=== PATIENT | male | born 1980 | race Caucasian/White ===

== ENCOUNTER 2022-06-09 03:48 | Emergency (ER) | payer OTHER ==
[2022-06-09 04:09] VITALS: O2SAT 99
[2022-06-09] MEDS ORDERED: BABY ASPIRIN 81 MG CHEW PO ONE (04:23)
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
[2022-06-09 04:48] LABS: Absolute Neutrophil Ct (ANC) 8.78 x10^3/uL (1.4-6.9); BASOPHIL % 0.4 % (0.0-0.4); Basophil (Absolute #) 0.05 x10^3/uL (0-0.4); Eosinophil % 1.7 % (0.00-5.0); Hematocrit 44.6 % (42-50); Hemoglobin 14.5 g/dL (12.5-18.0); IMMATURE GRAN # 0.04 x10^3u/L (0.00-0.03); IMMATURE GRAN % 0.3 % (0.00-0.4); Lymphocyte (Absolute #) 2.18 x10^3/uL (1.0-4.6); Lymphocytes % 18.1 % (24.0-44.0); Mean Cell Volume 85.8 fL (78-100); Mean Corpuscular Hemoglobin 27.9 pg (26-32); Mean Corpuscular Hgb Concent. 32.5 g/dL (32-36); Mean Platelet Volume 10.6 fL (7.5-11.0); Monocyte (Absolute #) 0.78 x10^3/uL (0.0-1.3); Monocytes % 6.5 % (0.0-12.0); Platelet Count 245 x10^3/uL (150-450); Red Cell Distribution Width 12.6 % (11.5-14.0)
[2022-06-09 05:03] VITALS: BP 139/67; PULSE 77
[2022-06-09 05:12] LABS: ANION GAP 13.6 MEQ/L (5-15); BLOOD UREA NITROGEN 16 mg/dL (9-20); CHLORIDE 102 mmol/L (98-107); Calcium 8.2 mg/dL (8.4-10.2); Carbon Dioxide 25 mmol/L (22-30); Creatinine 1 0.66 mg/dL (0.66-1.25); EST GLOMERULAR FILTRATION RATE > 60.0 ML/MIN; Glucose 177 mg/dL (74-106); SODIUM 136 mmol/L (137-145)
== END 2022-06-09 05:34 | disposition home or self-care (01) ==
LOC: ED 03:48
DX: R55 Syncope and collapse (principal); E11.9 Type 2 diabetes mellitus without complications; I10 Essential (primary) hypertension; Z79.84 Long term (current) use of oral hypoglycemic drugs; Z79.85 Long-term (current) use of injectable non-insulin antidiabetic drugs; Z72.0 Tobacco use
CPT/HCPCS: 36415; 80048; 84484; 85025; 93005; 99283; A9270-GY